=== PATIENT | female | born 2000 | race Caucasian/White ===

== ENCOUNTER 2020-11-08 11:16 | Emergency (ER) | payer OTHER, MEDICAID, SELFPAY ==
[2020-11-08 11:25] VITALS: BP 141/60; PULSE 98; RESP 18; TEMP 36.9; O2SAT 98
--- NOTE | 2020-11-08 11:51 | ED.URI ---
HPI - URI/Sore Throat General Chief Complaint: Upper Respiratory Infection Stated Complaint: ear pain congestion and headache Time Seen by Provider: 11/08/20 11:51 Source: patient and family History of Present Illness HPI Narrative: Patient presents with bilateral ear pain nasal congestion cough fever and fatigue. Patient works at [employer] and states her symptoms started yesterday. Patient is not immunized for COVID-19 MD elicited complaint: fever and nasal congestion Related Data Home Medications Medication Instructions Recorded Confirmed No Home Medications 11/08/20 11/08/20 Allergies Allergy/AdvReac Type Severity Reaction Status Date / Time Bumble Bee Allergy Intermediate Dyspnea / Uncoded 11/08/20 11:32 SOB Review of Systems Review of Systems: CONSTITUTIONAL: Denies chills, or sweats. Reports fever and generalized body aches EYES: Denies visual changes, redness, or discharge. ENT: Denies otalgia. Reports nasal congestion runny nose and sore throat CARDIOVASCULAR: Denies chest pain, palpitations, or edema. RESPIRATORY: Denies dyspnea. Reports occasional cough GASTROINTESTINAL: Denies abdominal pain, nausea, vomiting, or diarrhea. GENITOURINARY: Denies dysuria or hematuria. SKIN: Denies rash or itching. MUSCULOSKELETAL: Denies back pain, joint pain, or myalgia. Reports generalized body aches NEUROLOGIC: Denies headache, numbness, or weakness. PSYCHIATRIC: Denies anxiety or depression. [facility] Past Medical History Medical History (Updated 11/08/20 @ 12:08 by AASHISH Carlisle) Anxiety Depression Fracture Left forearm Surgical History Surgical History (Updated 03/13/19 @ 18:01 by AASHISH Milner) History of adenoidectomy Hx of tonsillectomy Social History Social History (Updated 03/13/19 @ 18:06 by AASHISH Milner) Social History: Marijuana use Comments At time of signature, agree with nursing past medical, surgical, social and family history. There is no relevant family history pertinent to the presenting complaint Exam Narrative: The patient is a well-developed, well-nourished in no acute distress. SKIN: Skin is warm and dry without erythema, swelling or exudate. There is good turgor. No tenting. HEAD: Atraumatic. Normocephalic. No temporal or scalp tenderness. EYES: Moist and bright. Sclera and conjunctivae normal. No discharge. PERRLA. Extraocular motions intact. Gross visual acuity intact. EARS: Pinna is normal shape and contour. Clear external auditory canals. TM pearly robbins with good cone of light, no erythema or suppuration. Bilateral cerumen noted no gross hearing deficit. NOSE: pink, moist mucosa with good air movement. Clear rhinorrhea without nasal flaring. Septum midline. Mouth: moist mucous membranes. THROAT; mild erythema noted to posterior oropharynx with moderate postnasal drainage. Without exudate or ulceration.. Uvula midline. Normal movement of soft palate. NECK: Supple and nontender with full range of motion without discomfort. No meningeal signs. LUNGS: Equal and bilateral breath sounds without wheezes, rales or rhonchi. CHEST: The chest wall is without retractions or use of accessory muscles. HEART: Has a regular rate and rhythm without murmur, gallops, click or rub. ABDOMEN: Soft, nontender with positive active bowel sounds. No rebound tenderness. EXTREMITIES: Without cyanosis, clubbing or edema. Equal 2+ distal pulses and 2 second capillary refill noted. NEUROLOGIC: alert, active, . The patient moves all extremities with normal muscle strength. Normal muscle tone is noted. Normal coordination is noted. NO focal neurological findings noted. MDM - URI/Sore Throat Differential Diagnosis Differential diagnosis: Likely upper respiratory infection, croup, otitis media, sinusitis, viral infection, bronchitis, influenza and pharyngitis Medical Records Attestation: I reviewed the patient's medical records. Lab Data Attestation: I reviewed the patient's lab
== END 2020-11-08 12:10 | disposition home or self-care (01) ==
PROVIDERS: Emergency Provider Nurse Practitioner Family
DX: U07.1 COVID-19 (principal)
CPT/HCPCS: 87426; 99213; C9803; G0463

== ENCOUNTER 2021-08-08 14:12 | Emergency (ER) | payer OTHER, MEDICAID, SELFPAY ==
--- NOTE | ~2021-08-08 | XR_ITS ---
EXAM: XR shoulder LT min 2V HISTORY: STRAINED ARM LIFTING A 15LB. ITEM 08/07/21. LROM. COMPARISON: None available FINDINGS: Normal mineralization. Oblique oriented linear lucency and cortical step-off seen in one v iew in the mid shaft left clavicle, otherwise no fracture or dislocation. No lytic or blastic lesion. Joint spaces maintained. No erosion or periosteal change. Soft tissues within normal limits. IMPRESSION: Lucency and cortical irregularity in the mid left clavicular shaft, likely representing a vascular ch ute and summation artifact, unless accompanied by point tenderness. Otherwise no acute osseous find ing in the left shoulder. Reviewed, dictated and finalized at location K. IMPRESSION: Lucency and cortical irregularity in the mid left clavicular shaft, likely repr esenting a vascular channel and summation artifact, unless accompanied by point tenderness. Otherwise no acute osseous finding in the left shoulder.
[2021-08-08 14:18] VITALS: BP 116/69; PULSE 82; RESP 20; TEMP 37; O2SAT 99
--- NOTE | 2021-08-08 15:12 | ED.GENADULT ---
HPI - General Adult General Chief complaint: Extremity Injury, Upper Stated complaint: left shoulder/back injury Source: patient Mode of arrival: ambulatory Limitations: no limitations History of Present Illness HPI narrative: Patient presents for evaluation of left shoulder/scapula pain since yesterday. She works at [employer] she dropped a tea urn yesterday while working. Since that time she has noted pain in the affected area. Pain is rated 4/10 in severity, without descriptive quality and worse with movement. She tried taking ibuprofen and tylenol with some improvement in her pain thereafter. No radicular component. No paresthesias. She is right-hand dominant. No additional complaints or concerns. Patient has an IUD. Related Data Allergies Allergy/AdvReac Type Severity Reaction Status Date / Time Bumble Bee Allergy Intermediate Dyspnea / Uncoded 08/08/21 14:19 SOB Review of Systems Review of Systems: CONSTITUTIONAL: Denies fever, chills, or sweats. EYES: Denies visual changes, redness, or discharge. ENT: Denies rhinorrhea, congestion, sore throat, or otalgia. CARDIOVASCULAR: Denies chest pain, palpitations, or edema. RESPIRATORY: Denies cough or dyspnea. GASTROINTESTINAL: Denies abdominal pain, nausea, vomiting, or diarrhea. GENITOURINARY: Denies dysuria or hematuria. SKIN: Denies rash or itching. MUSCULOSKELETAL: Reports pain left scapula/shoulder. Denies other joint pain NEUROLOGIC: Denies headache, numbness, dizziness, or weakness. PSYCHIATRIC: Denies anxiety or depression. [facility] Past Medical History Medical History Anxiety Depression Fracture Left forearm Surgical History Surgical History History of adenoidectomy Hx of tonsillectomy Family History Family History Mother Heart disease COPD (chronic obstructive pulmonary disease) Social History Social History Social History: Marijuana use Smoking status: Never smoker Alcohol intake: never Substance use: current Substance use type: marijuana Living arrangements: with family Occupation/Education: occupation Additional occupation/education comments: Works at [employer] Gender identity (if verbalized by the patient): Female Spiritual care concerns: No Exam Narrative: GENERAL: Well-appearing, well-nourished, and in no acute distress. HEAD: Normocephalic, atraumatic. EYES: PERRLA and EOMI. ENT: Nares clear, no rhinorrhea or epistaxis. Mucous membranes moist. Oropharynx without tonsillar hypertrophy exudate or other lesions. Bilateral TMs pearly tovar nonbulging NECK: Supple. No adenopathy or masses. No carotid bruits or JVD CHEST: Clear to auscultation. No respiratory distress. No wheezes rales or rhonchi HEART: Regular rate and rhythm. No murmur heard. Normal peripheral pulses. ABDOMEN: Soft, nontender, nondistended, normal active bowel sounds. EXTREMITIES: Tenderness over the left scapula without discrete left shoulder tenderness. There is no crepitus or deformity. She is able to perform full range of motion of the left shoulder but does so with hesitancy secondary to pain. 5 out of 5 handgrip strength bilaterally. No tenderness in the clavicle. SKIN: Warm, dry, no rash. NEURO: No focal deficits. Alert and oriented x3. PSYCH: Normal mood and affect. Course Course Emergency Course: This is a 21-year-old female who presented with pain in the left scapula and shoulder after dropping a tea urn yesterday. X ray negative for fracture. She has no tenderness in clavicle to suggest clavicle fracture. This appears to be a muscle strain. Will discharge with a prescription for Flexeril. She may take ibuprofen for pain. She should follow up outpatient for further evaluatio
== END 2021-08-08 16:15 | disposition home or self-care (01) ==
PROVIDERS: Emergency Provider Nurse Practitioner
DX: S46.912A Strain of unspecified muscle, fascia and tendon at shoulder and upper arm level, left arm, initial encounter (principal); X58.XXXA Exposure to other specified factors, initial encounter
CPT/HCPCS: 73030; 99213; G0463

== ENCOUNTER 2022-03-02 17:00 | Emergency (ER) | payer OTHER, MEDICAID, SELFPAY ==
[2022-03-02 17:40] VITALS: BP 138/71; PULSE 95; RESP 20; TEMP 37.1; O2SAT 100
--- NOTE | 2022-03-02 18:38 | ED.URI ---
HPI - URI/Sore Throat General Chief Complaint: Upper Respiratory Infection Stated Complaint: Sore Throat/Headache Time Seen by Provider: 03/02/22 18:35 Source: patient and RN notes reviewed Mode of arrival: ambulatory Limitations: no limitations History of Present Illness HPI Narrative: 21-year-old female presents with concern for 4 day history of body aches, cough, headache, ear pain, sore throat. Reports cough seemed to worsen today with chest heaviness. She reports chills, sweats, aches MD elicited complaint: cough Related Data Home Medications Medication Instructions Recorded Confirmed levonorgestrel 20 mcg/24 hours (8 1 device intrauterine ONCE 03/02/22 03/02/22 yrs) 52 mg intrauterine device (Mirena) Allergies Allergy/AdvReac Type Severity Reaction Status Date / Time bee pollen Allergy Unknown Unknown Verified 03/02/22 18:01 Review of Systems Review of Systems: CONSTITUTIONAL: Reports malaise, chills, sweats EYES: Denies visual changes, redness, or discharge. ENT: Reports rhinorrhea, congestion, sore throat. Denies sinus pain, otalgia CARDIOVASCULAR: Denies chest pain, palpitations, or edema. RESPIRATORY: Reports cough. Denies dyspnea. GASTROINTESTINAL: Denies abdominal pain, nausea, vomiting, diarrhea SKIN: Denies rash or itching. MUSCULOSKELETAL: Reports myalgia. NEUROLOGIC: Denies headache. All systems reviewed & are unremarkable except as noted in HPI and below PMFSH Past Medical History Medical History Anxiety Depression Fracture Left forearm Surgical History Surgical History History of adenoidectomy Hx of tonsillectomy Family History Family History Mother Heart disease COPD (chronic obstructive pulmonary disease) Social History Social History Social History: Marijuana use Smoking status: Never smoker Alcohol intake: never Substance use: current Substance use type: marijuana Additional occupation/education comments: Works at [employer] Gender identity (if verbalized by the patient): Female Spiritual care concerns: No Comments At time of signature, agree with nursing past medical, surgical, social and family history. There is no relevant family history pertinent to the presenting complaint Exam Narrative: GENERAL: Nontoxic-appearing and in no acute distress. HEAD: Normocephalic EYES: PERRLA, conjunctivae clear ENT: Nares clear, turbinates edematous and erythematous, clear discharge. Mucous membranes moist. TM pearly tovar with sharp light reflex bilaterally; no tragal tenderness. Oropharynx not erythematous without lesions. Tonsils not enlarged and without exudate, no drooling, no hoarseness, no trismus, uvula midline. NECK: Supple. No lymphadenopathy CHEST: Clear to auscultation, breath sounds equal. No wheezing, rhonchi, rales, or stridor. No respiratory distress, speaks in full sentences. HEART: Regular rate and rhythm. No murmur heard. SKIN: Warm, dry, no rash. NEURO: Alert and oriented x3. PSYCH: Normal mood and affect Course Course Emergency Course: Patient is aware of diagnosis, understands and agrees to treatment plan. Anticipatory guidance given. Patient agrees to follow-up as directed and is aware of reasons to seek care at the emergency department. Portions of this record may have been created with voice recognition software Level of Care: Express Care Visit Vital Signs Vital signs: Vital Signs Temperature 98.7 F 03/02/22 17:40 Pulse Rate 95 03/02/22 17:40 Respiratory Rate 20 03/02/22 17:40 Blood Pressure 138/71 03/02/22 17:40 Pulse Oximetry 100 03/02/22 17:40 Oxygen Delivery Room Air 03/02/22 17:40 Temperature 98.7 F 03/02/22 17:40 Pulse Rate 95 03/02/22 17:40 Resp
== END 2022-03-02 18:50 | disposition home or self-care (01) ==
PROVIDERS: Emergency Provider Nurse Practitioner
DX: J02.9 Acute pharyngitis, unspecified (principal); R05.9 Cough, unspecified; R51.9 Headache, unspecified; H92.09 Otalgia, unspecified ear
CPT/HCPCS: 87804; 99213; G0463

== ENCOUNTER 2022-09-18 12:52 | Emergency (ER) | payer OTHER, MEDICAID, SELFPAY ==
--- NOTE | 2022-09-18 13:02 | ED.HA ---
HPI - Headache General Chief Complaint: Headache Stated Complaint: head hurts Time Seen by Provider: 09/18/22 13:02 Source: patient and RN notes reviewed History of Present Illness HPI Narrative: Patient is a 22-year-old female who presents to urgent care with complaints of a headache. Patient states that it was worse this morning and does feel slightly better this afternoon however she ?called off work and needs a work note?. Patient states that yesterday it started after giving plasma when she became lightheaded and did have 1 episode of vomiting. Patient states that she was giving plasma for ?extra money to pay her insurance pill?. Patient states that she has never given blood products before. Patient states she did try 1 dose of Tylenol yesterday but has not treated her headache today. Patient aware of the plan of care. Some parts of this dictation were generated by voice recognition software and may contain typographical and/or grammatical inaccuracies. Related Data Home Medications Medication Instructions Recorded Confirmed levonorgestrel 21 mcg/24 hours (8 1 device intrauterine ONCE 03/02/22 03/02/22 yrs) 52 mg intrauterine device (Mirena) Allergies Allergy/AdvReac Type Severity Reaction Status Date / Time bee pollen Allergy Unknown Unknown Verified 03/02/22 18:01 Review of Systems Review of Systems: CONSTITUTIONAL: Denies fever, chills, or sweats. EYES: Denies visual changes, redness, or discharge. ENT: Denies rhinorrhea, congestion, sore throat, or otalgia. CARDIOVASCULAR: Denies chest pain, palpitations, or edema. RESPIRATORY: Denies cough or dyspnea. GASTROINTESTINAL: Denies abdominal pain, nausea, vomiting, or diarrhea. GENITOURINARY: Denies dysuria or hematuria. SKIN: Denies rash or itching. MUSCULOSKELETAL: Denies back pain, joint pain, or myalgia. NEUROLOGIC: Reports headache All other systems reviewed are negative, except as documented in HPI. [facility] Past Medical History Medical History Anxiety Depression Fracture Left forearm Surgical History Surgical History History of adenoidectomy Hx of tonsillectomy Family History Family History Mother Heart disease COPD (chronic obstructive pulmonary disease) Social History Social History Social History: Marijuana use Smoking status: Never smoker Alcohol intake: never Substance use: current Substance use type: marijuana Living arrangements: with family Occupation/Education: occupation Additional occupation/education comments: Works at [employer] Gender identity (if verbalized by the patient): Female Spiritual care concerns: No Comments At the time of my signature, I reviewed and agree with the nursing past medical, surgical, social, and family history. There is no relevant family history pertinent to the patient complaint. Exam Narrative: GENERAL: This is a well-nourished, well-developed patient, in no apparent distress. HEAD: normocephalic, atraumatic. EYES: PERRL. Sclera clear/white. Vision is grossly intact. EARS: External ears normal NOSE: External nose normal with no obvious nasal discharge, nares without redness, no rhinorrhea. THROAT: Mucous membranes moist NECK: Neck supple SKIN: warm, intact with no suspicious lesions or rash, good texture and turgor. NEURO: awake, alert, and oriented to person, place and time. There were no obvious focal neurologic abnormalities. EXTREMITIES: No clubbing, cyanosis, or edema. Course Course Level of Care: Express Care Visit Vital Signs Vital signs: Vital Signs Temperature 97.1 F L 09/18/22 13:03 Pulse Rate 91 09/18/22 13:03 Respiratory Rate 16 09/18/22 13:03 Blood Pressure 124/72 09/18/22 13:03 Puls
[2022-09-18 13:03] VITALS: BP 124/72; PULSE 91; RESP 16; TEMP 36.2; O2SAT 98
== END 2022-09-18 13:13 | disposition home or self-care (01) ==
PROVIDERS: Emergency Provider Nurse Practitioner Family
DX: G44.209 Tension-type headache, unspecified, not intractable (principal)
CPT/HCPCS: 99211; G0463

== ENCOUNTER 2022-09-19 12:32 | Emergency (ER) | payer OTHER, MEDICAID, SELFPAY ==
--- NOTE | ~2022-09-19 | XR_ITS ---
XR hand LT min 3V DATE: 09/19/2022 12:55 INDICATION: Injury. Hyperextension injury of fifth digit. TECHNIQUE: 3 views COMPARISON: None FINDINGS: No fracture or dislocation, periosteal reaction or bone destruction or other significant [place] or soft tissue abnormality. IMPRESSION: Negative Reviewed, dictated and finalized at location A. IMPRESSION: Negative
[2022-09-19 12:42] VITALS: BP 137/64; PULSE 89; RESP 16; TEMP 37; O2SAT 99
--- NOTE | 2022-09-19 12:49 | ED.UPPEXIN ---
HPI - Extremity Injury (Upper) General Chief Complaint: Extremity Injury, Upper Stated Complaint: left hand injury Time Seen by Provider: 09/19/22 12:49 Source: patient and RN notes reviewed History of Present Illness HPI narrative: Patient is a 22-year-old female presents to urgent care with complaints of left hand injury after tripping over her cat yesterday. Patient is complaining of most of the pain in the 5th left finger. Patient states that she took Tylenol yesterday. Patient was also evaluated at our facility yesterday for headache and was requesting a work note. No other acute complaints. No acute distress noted. Patient aware of the plan of care. Some parts of this dictation were generated by voice recognition software and may contain typographical and/or grammatical inaccuracies. Related Data Home Medications Medication Instructions Recorded Confirmed levonorgestrel 21 mcg/24 hours (8 1 device intrauterine ONCE 03/02/22 03/02/22 yrs) 52 mg intrauterine device (Mirena) Allergies Allergy/AdvReac Type Severity Reaction Status Date / Time bee pollen Allergy Unknown Unknown Verified 03/02/22 18:01 Review of Systems Review of Systems: CONSTITUTIONAL: Denies fever, chills, or sweats. EYES: Denies visual changes, redness, or discharge. ENT: Denies rhinorrhea, congestion, sore throat, or otalgia. CARDIOVASCULAR: Denies chest pain, palpitations, or edema. RESPIRATORY: Denies cough or dyspnea. GASTROINTESTINAL: Denies abdominal pain, nausea, vomiting, or diarrhea. GENITOURINARY: Denies dysuria or hematuria. SKIN: Denies rash or itching. MUSCULOSKELETAL: Reports of left 5th finger pain NEUROLOGIC: Denies headache, numbness, or weakness. All other systems reviewed are negative, except as documented in HPI. [facility] Past Medical History Medical History Anxiety Depression Fracture Left forearm Surgical History Surgical History History of adenoidectomy Hx of tonsillectomy Family History Family History Mother Heart disease COPD (chronic obstructive pulmonary disease) Social History Social History Social History: Marijuana use Smoking status: Never smoker Alcohol intake: never Substance use: current Substance use type: marijuana Living arrangements: with family Occupation/Education: occupation Additional occupation/education comments: Works at [employer] Gender identity (if verbalized by the patient): Female Spiritual care concerns: No Comments At the time of my signature, I reviewed and agree with the nursing past medical, surgical, social, and family history. There is no relevant family history pertinent to the patient complaint. Exam Narrative: GENERAL: This is a well-nourished, well-developed patient, in no apparent distress. HEAD: normocephalic, atraumatic. EYES: PERRL. Sclera clear/white. Vision is grossly intact. EARS: External ears normal NOSE: External nose normal with no obvious nasal discharge, nares without redness, no rhinorrhea. THROAT: Mucous membranes moist NECK: Neck supple SKIN: warm, intact with no suspicious lesions or rash, good texture and turgor. NEURO: awake, alert, and oriented to person, place and time. There were no obvious focal neurologic abnormalities. EXTREMITIES: No obvious deformity, ecchymosis or edema noted to the left hand/5th finger. Moderate tenderness on palpation. Range of motion limited due to pain. Positive strong left radial pulse with capillary refill less than 2 seconds. Course Course Level of Care: Express Care Visit Vital Signs Vital signs: Vital Signs Temperature 98.6 F 09/19/22 12:42 Pulse Rate 89 09/19/22 12:42 Respiratory Rate 16 09/19/22 12:42 Blood Pres
== END 2022-09-19 13:24 | disposition home or self-care (01) ==
PROVIDERS: Emergency Provider Nurse Practitioner Family
DX: S63.617A Unspecified sprain of left little finger, initial encounter (principal); W01.0XXA Fall on same level from slipping, tripping and stumbling without subsequent striking against object, initial encounter
CPT/HCPCS: 73130; 99213; G0463

== ENCOUNTER 2023-03-19 14:58 | Emergency (ER) | payer OTHER, MEDICAID, SELFPAY ==
[2023-03-19 15:06] VITALS: BP 124/77; PULSE 95; RESP 20; TEMP 36.7; O2SAT 96
--- NOTE | 2023-03-19 15:19 | ED.URI ---
HPI - URI/Sore Throat General Chief Complaint: Upper Respiratory Infection Stated Complaint: Ear Ache; Cold Symptoms History of Present Illness HPI Narrative: 22-year-old female presented for complaint of sore throat , nasal congestion, and Bilateral ear pain. Onset yesterday. 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 She has not taken anything for symptoms. Denies shortness breath, wheezing, nausea, vomiting, fevers or chills. Related Data Home Medications Medication Instructions Recorded Confirmed levonorgestrel 21 mcg/24 hours (8 1 device intrauterine ONCE 03/02/22 03/02/22 yrs) 52 mg intrauterine device (Mirena) Allergies Allergy/AdvReac Type Severity Reaction Status Date / Time bee pollen Allergy Unknown Unknown Verified 03/02/22 18:01 Review of Systems Review of Systems: CONSTITUTIONAL: Denies body aches, fever, chills, or sweats. EYES: Denies visual changes, redness, or discharge. ENT: reports congestion, sore throat, otalgia. CARDIOVASCULAR: Denies chest pain, palpitations, or edema. RESPIRATORY: Denies dyspnea. GASTROINTESTINAL: Denies abdominal pain, nausea, vomiting, or diarrhea. SKIN: Denies rash, itching, or wounds. MUSCULOSKELETAL: Denies back pain, joint pain, or myalgia. NEUROLOGIC: Denies headache PMFSH Past Medical History Medical History Anxiety Depression Fracture Left forearm Surgical History Surgical History History of adenoidectomy Hx of tonsillectomy Family History Family History Mother Heart disease COPD (chronic obstructive pulmonary disease) Social History Social History Social History: Marijuana use Smoking status: Never smoker Alcohol intake: never Substance use: current Substance use type: marijuana Living arrangements: with family Occupation/Education: occupation Additional occupation/education comments: Works at [employer] Gender identity (if verbalized by the patient): Female Spiritual care concerns: No Exam Narrative: GENERAL: well-appearing, no acute distress. EYES: conjunctivae clear ENT: Mucous membranes moist. TMs pearly tovar with normal light reflex bilaterally; no tragal tenderness. Excess cerumen bilateral canals. Oropharynx not erythematous without lesions. Tonsils absent. No drooling, no hoarseness, no trismus, uvula midline. No tripod positioning, hot potato voice, or soft palate swelling. NECK: Supple. No lymphadenopathy CHEST: Clear to auscultation, breath sounds equal. No respiratory distress, speaks in full sentences. HEART: Regular rate and rhythm. No murmur heard. SKIN: Warm, dry, no rash. NEURO: Alert and oriented x3. Course Course Emergency Course: Patient is aware of diagnosis, understands and agrees to treatment plan. Anticipatory guidance given. Patient agrees to follow-up as directed and is aware of reasons to seek care at the emergency department. Portions of this record may have been created with voice recognition software Level of Care: Express Care Visit MDM - URI/Sore Throat MDM Narrative Medical decision making narrative: negative strep test results reviewed with patient. Discussed physical exam findings. Advised supportive measures and signs/symptoms to go to the ER. Pt is appropriate for outpt treatment and f/u. Differential Diagnosis Differential diagnosis: Likely upper respiratory infection, otitis media, sinusitis, viral infection and pharyngitis Discharge Plan Discharge Clinical Impression: Upper respiratory infection Patient Disposition: Home, Self-Care Condition: Stable Instructions: Antibiotic Form, Earache (ED) Additional Instructions: Rapid strep swab was nega
== END 2023-03-19 15:33 | disposition home or self-care (01) ==
PROVIDERS: Emergency Provider Nurse Practitioner Family
DX: J06.9 Acute upper respiratory infection, unspecified (principal); F12.90 Cannabis use, unspecified, uncomplicated
CPT/HCPCS: 87081; 87880; 99213; G0463

== ENCOUNTER 2023-06-24 15:33 | Emergency (ER) | payer OTHER, MEDICAID, SELFPAY ==
[2023-06-24 15:43] VITALS: BP 144/79; PULSE 82; RESP 16; TEMP 37.1; O2SAT 99
--- NOTE | 2023-06-24 16:03 | ED.GENADULT ---
HPI - General Adult General Stated complaint: Head Injury Time Seen by Provider: 06/24/23 16:04 Source: patient Mode of arrival: ambulatory Limitations: no limitations History of Present Illness HPI narrative: 22 yo F presents with c/o headache. Pt states that she was bent down at work and when she stood up hit her head on oven on wall. Denies LOC. C/o headache. Took tylenol which helped pain some . No N/V or dizziness. Ambulatory with steady gait. Pt left work early due to headache. Needs work note. Drove herself to [facility]. All systems reviewed and negative except as noted above. Related Data Home Medications Medication Instructions Recorded Confirmed levonorgestrel 21 mcg/24 hours (8 1 device intrauterine ONCE 03/02/22 06/24/23 yrs) 52 mg intrauterine device (Mirena) Allergies Allergy/AdvReac Type Severity Reaction Status Date / Time bee pollen Allergy Unknown Unknown Verified 06/24/23 16:07 Review of Systems Review of Systems: CONSTITUTIONAL: Denies fever, chills, or sweats. EYES: Denies visual changes, redness, or discharge. ENT: Denies rhinorrhea, congestion, sore throat, or otalgia. CARDIOVASCULAR: Denies chest pain, palpitations, or edema. RESPIRATORY: Denies cough or dyspnea. GASTROINTESTINAL: Denies abdominal pain, nausea, vomiting, or diarrhea. GENITOURINARY: Denies dysuria or hematuria. SKIN: Denies rash or itching. MUSCULOSKELETAL: Denies back pain, joint pain, or myalgia. NEUROLOGIC: Reports headache. Denies numbness, or weakness. PSYCHIATRIC: Denies anxiety or depression. All other systems reviewed are negative, except as documented in HPI. COUNTS INCLUDE 234 BEDS AT THE [facility] Past Medical History Medical History Anxiety Depression Fracture Left forearm Surgical History Surgical History History of adenoidectomy Hx of tonsillectomy Family History Family History Mother Heart disease COPD (chronic obstructive pulmonary disease) Social History Social History Social History: Marijuana use Smoking status: Never smoker Alcohol intake: never Substance use: current Substance use type: marijuana Living arrangements: with family Occupation/Education: occupation Additional occupation/education comments: Works at [employer] Gender identity (if verbalized by the patient): Female Spiritual care concerns: No Comments At time of signature, agree with nursing past medical, surgical, social and family history. There is no relevant family history pertinent to the presenting complaint. Exam Narrative: GENERAL: This is a well-nourished, well-developed patient, in no apparent distress. HEAD: normocephalic, small hematoma approx. 2cm diameter to R parietal aspect of scalp EYES: PERRL. Sclera clear/white. Vision is grossly intact. Extraocular motions intact EARS: External ears normal NOSE: External nose normal THROAT: Mucous membranes moist, posterior pharynx clear. NECK: Neck supple, non-tender without lymphadenopathy, masses or thyromegaly. CARDIOVASCULAR: Regular rate and rhythm without murmurs, gallops, or rubs. RESPIRATORY: Clear to auscultation. Breath sounds equal bilaterally. No wheezes, rales, or rhonchi. SKIN: warm, Dry, intact with no suspicious lesions or rash, good texture and turgor. NEURO: awake, alert, and oriented to person, place and time. There were no obvious focal neurologic abnormalities. EXTREMITIES: No joint tenderness, effusion, or edema noted. Course Course Level of Care: Express Care Visit Vital Signs Vital signs: Vital Signs Temperature 37.1 C 06/24/23 15:43 Pulse Rate 82 06/24/23 15:43 Respiratory Rate 16 06/24/23 15:43 Blood Pressure 144/79 H 06/24/23 15:43 Pulse Oximetry 99 06/24/23 15:43 Oxygen Delivery Room Air
== END 2023-06-24 16:10 | disposition home or self-care (01) ==
PROVIDERS: Emergency Provider Nurse Practitioner Family
DX: S00.03XA Contusion of scalp, initial encounter (principal); W22.09XA Striking against other stationary object, initial encounter; Y99.0 Civilian activity done for income or pay; F12.90 Cannabis use, unspecified, uncomplicated
CPT/HCPCS: 99213; G0463

== ENCOUNTER 2023-12-24 08:07 | Emergency (ER) | payer OTHER, MEDICAID, SELFPAY ==
[2023-12-24 08:18] VITALS: BP 136/86; PULSE 84; RESP 18; TEMP 36.6; O2SAT 99
--- NOTE | 2023-12-24 08:27 | ED.GENADULT ---
HPI - General Adult General Chief complaint: Upper Respiratory Infection Stated complaint: Sore Throat/Ear Pain Source: patient Mode of arrival: ambulatory Limitations: no limitations History of Present Illness HPI narrative: Patient presents for evaluation of sore throat for last 2 days. She also has bilateral otalgia and a mild cough. No fever, chills, nausea, vomiting, diarrhea. Some of her coworkers have been ill with at least one testing positive for strep. She is not taking any medications to assist with her symptoms. She smokes marijuana but denies cigarette use. She left work early today due to her symptoms. Related Data Home Medications Medication Instructions Recorded Confirmed levonorgestrel 21 mcg/24 hr (up to 1 device intrauterine ONCE 03/02/22 06/24/23 8 years) 52 mg intrauterine device (Mirena) Allergies Allergy/AdvReac Type Severity Reaction Status Date / Time bee pollen Allergy Unknown Unknown Verified 06/24/23 16:07 Review of Systems Review of Systems: CONSTITUTIONAL: Denies fever, chills, or sweats. EYES: Denies visual changes, redness, or discharge. ENT: Reports sore throat and bilateral otalgia. CARDIOVASCULAR: Denies chest pain, palpitations, or edema. RESPIRATORY: Reports mild cough. Denies dyspnea. GASTROINTESTINAL: Denies abdominal pain, nausea, vomiting, or diarrhea. GENITOURINARY: Denies dysuria or hematuria. SKIN: Denies rash or itching. MUSCULOSKELETAL: Denies back pain, joint pain, or myalgia. NEUROLOGIC: Denies headache, numbness, dizziness, or weakness. PSYCHIATRIC: Denies anxiety or depression. [facility] Past Medical History Medical History Anxiety Depression Fracture Left forearm Surgical History Surgical History History of adenoidectomy Hx of tonsillectomy Family History Family History Mother Heart disease COPD (chronic obstructive pulmonary disease) Social History Social History Social History: Marijuana use Smoking status: Never smoker Alcohol intake: never Substance use: current Substance use type: marijuana Living arrangements: with family Occupation/Education: occupation Additional occupation/education comments: Works at [employer] Gender identity (if verbalized by the patient): Female Spiritual care concerns: No Exam Narrative: GENERAL: Well-appearing, well-nourished, and in no acute distress. HEAD: Normocephalic, atraumatic. EYES: PERRLA and EOMI. ENT: Nares clear, no rhinorrhea or epistaxis. Mucous membranes moist. Posterior pharyngeal erythema without exudate. Uvula is midline. Bilateral TMs pearly tovar nonbulging NECK: Supple. No adenopathy or masses. No carotid bruits or JVD CHEST: Clear to auscultation. No respiratory distress. No wheezes rales or rhonchi HEART: Regular rate and rhythm. No murmur heard. Normal peripheral pulses. ABDOMEN: Soft, nontender, nondistended, normal active bowel sounds. EXTREMITIES: Normal range of motion. No edema. SKIN: Warm, dry, no rash. NEURO: No focal deficits. Alert and oriented x3. PSYCH: Normal mood and affect. Course Course Emergency Course: This is a 23-year-old female who presented for evaluation of a sore throat. Rapid strep negative. Will send throat culture. Advised on supportive care measures. Cepacol and ibuprofen should help. Follow up with primary provider. Go to the ER for worsening symptoms. Pt in agreement with plan of care. Level of Care: Express Care Visit Vital Signs Vital signs: Vital Signs Temperature 36.6 C 12/24/23 08:18 Pulse Rate 84 12/24/23 08:18 Respiratory Rate 18 12/24/23 08:18 Blood Pressure 136/86 12/24/23 08:18 Pulse Oximetry 99 12/24/23 08:18 Oxygen Delivery Room Air
[2023-12-24 08:35] LABS: EDSTREPNEGPOS1 Negative (Negative)
== END 2023-12-24 08:41 | disposition home or self-care (01) ==
PROVIDERS: Emergency Provider Nurse Practitioner
DX: J02.9 Acute pharyngitis, unspecified (principal); F12.90 Cannabis use, unspecified, uncomplicated
CPT/HCPCS: 87081; 87880; 99213; G0463

== ENCOUNTER 2024-03-09 16:43 | Emergency (ER) | payer OTHER, SELFPAY ==
[2024-03-09 16:47] VITALS: BP 119/65; PULSE 106; RESP 20; TEMP 36.6; O2SAT 99
[2024-03-09 16:51] VITALS: BP 119/65; PULSE 106; RESP 20; TEMP 36.6; O2SAT 99
--- NOTE | 2024-03-09 17:26 | ED_ITS ---
HPI - URI/Sore Throat General Chief Complaint: Upper Respiratory Infection Stated Complaint: throat/congestion/headache Time Seen by Provider: 03/09/24 17:30 Source: patient and RN notes reviewed Mode of arrival: ambulatory Limitations: no limitations History of Present Illness HPI Narrative: 23-year-old female presents with concern for 4 day history of nasal congestion, rhinorrhea, cough, sore throat, headache. She reports she is taking cold medicine without relief. She denies fever, body aches, chills, sweats MD elicited complaint: rhinorrhea and nasal congestion Related Data Home Medications Medication Instructions Recorded Confirmed etonogestrel 68 mg subdermal 1 implant subdermal ONCE 03/09/24 03/09/24 implant (Nexplanon) Allergies Allergy/AdvReac Type Severity Reaction Status Date / Time bee pollen Allergy Unknown Swelling Verified 03/09/24 16:50 metoclopramide [From Reglan] Allergy Anxiety Verified 03/09/24 16:50 Review of Systems Review of Systems: CONSTITUTIONAL: Denies malaise, chills, sweats, or fever. EYES: Denies visual changes, redness, or discharge. ENT: Reports rhinorrhea, congestion, and sore throat. CARDIOVASCULAR: Denies chest pain, palpitations, or edema. RESPIRATORY: Reports cough. Denies dyspnea. GASTROINTESTINAL: Denies abdominal pain, nausea, vomiting, diarrhea SKIN: Denies rash or itching. MUSCULOSKELETAL: Denies myalgia. NEUROLOGIC: Denies headache. All systems reviewed & are unremarkable except as noted in HPI and below PMFSH Past Medical History Medical History Anxiety Depression Fracture Left forearm Surgical History Surgical History History of adenoidectomy Hx of tonsillectomy Family History Family History Mother Heart disease COPD (chronic obstructive pulmonary disease) Social History Social History Social History: Marijuana use Smoking status: Never smoker Alcohol intake: never Substance use: current Substance use type: marijuana Living arrangements: with family Occupation/Education: occupation Additional occupation/education comments: Works at [employer] Gender identity (if verbalized by the patient): Female Spiritual care concerns: No Comments At time of signature, agree with nursing past medical, surgical, social and family history. There is no relevant family history pertinent to the presenting complaint Exam Narrative: GENERAL: Well-appearing, well-nourished, and in no acute distress. HEAD: Normocephalic EYES: PERRLA, conjunctivae clear ENT: Nares clear, turbinates edematous and erythematous, clear discharge. Mucous membranes moist. TM pearly tovar with dull light reflex bilaterally; no tragal tenderness. Oropharynx not erythematous without lesions. Tonsils not enlarged and without exudate, no drooling, no hoarseness, no trismus, uvula midline. NECK: Supple. No lymphadenopathy CHEST: Clear to auscultation, breath sounds equal. No wheezing, rhonchi, rales, or stridor. No respiratory distress, speaks in full sentences. HEART: Regular rate and rhythm. No murmur heard. SKIN: Warm, dry, no rash. NEURO: Alert and oriented x3. PSYCH: Normal mood and affect Course Course Emergency Course: Patient is aware of diagnosis, understands and agrees to treatment plan. Anticipatory guidance given. Patient agrees to follow-up as directed and is aware of reasons to seek care at the emergency department. Portions of this record may have been created with voice recognition software Level of Care: Express Care Visit Vital Signs Vital signs: Vital Signs Temperature 97.9 F 03/09/24 16:47 Pulse Rate 106 H 03/09/24 16:47 Respiratory Rate 20 03/09/24 16:47 Blood Pressure 119/65 03/09/24 16:47 Pulse Oximetry 99 03/09/24 16:47 Oxygen Delivery Room Air 03/09/24 16:47 Temperature 97.9 F 03/09/24 16:51 Pulse Rate 106 H 03/09/24 16:51 Respiratory Rate 20 03/09/24 16:51 Blood Pressure 119/65 03/09/24 16:51 Pulse Oximetry 99 03/09/24 16:51 Oxygen Delivery Room Air 03/09/24 16:51 Reviewed. MDM - URI/Sore Throat MDM Narrative Medical decision making narrative: Differential diagnosis considered: Cota virus, strep pharyngitis, allergic rhinitis, upper respiratory tract infection, sinusitis, rhinosinusitis, nasopharyngitis. viral pharyngitis, otitis media, otitis externa, pneumonia, bronchitis, viral cough syndrome, viral syndrome, and influenza. Exam findings show no acute concerns or changes; patient is non-toxic appearing and is in no distress. Patient is appropriate for outpatient treatment and follow-up. Lab Data Attestation: I reviewed the patient's lab results. Critical Care Time Critical Care Time Critical Care Time: No Discharge Plan Discharge Clinical Impression: Upper respiratory infection Patient Disposition: Home, Self-Care Condition: Stable Instructions: Upper Respiratory Infection (ED) Additional Instructions: Your rapid COVID and flu tests are negative Viral illness may last between 7-21 days; antibiotics do not cure viral illness and are NOT recommended at this time. Recommend antihistamine such as Benadryl at night time and Zyrtec or Lizeth during the day Also, recommend symptomatic treatment includes: rest, fluids, and increase humidity of the air at home. Recommend Acetaminophen as directed on the bottle to reduce fever, pain, headache. Avoid smoking/second-hand smoke. Please schedule a follow-up visit with your personal physician for further evaluation and treatment within 3-5days. Including recheck and discussion of your blood pressure. If your symptoms persist, change or worsen significantly before you can contact your personal physician then please, without delay, go to the emergency department for further evaluation. Prescriptions: New pseudoephedrine HCl [12 Hour Decongestant] 120 mg tablet extended release 120 mg PO Q12H PRN (Reason: nasal congestion) Qty: 20 0RF dextromethorphan-guaifenesin [Mucinex DM] 60-1,200 mg tablet extended release 12 hr 1 tablet PO Q12H Qty: 12 0RF ipratropium bromide 21 mcg (0.03 %) spray,non-aerosol 2 spray NASAL TID PRN (Reason: nasal drainage) Qty: 30 0RF Rx Instructions: administer into each nostril No Action Nexplanon 68 mg Implant 1 implant SUBDERMAL ONCE Rx Instructions: as a single dose Follow-up/Referrals: PHYSICIAN,SKI LIFT ATTENDANT [Primary Care Provider] - Stand Alone Forms: Work/School Release IP Time of Disposition: 17:49
[2024-03-09 17:50] LABS: EDCOVIDSCREEN Negative (Negative); EDINFLUASCREEN Negative (Negative); EDINFLUBSCREEN Negative (Negative)
== END 2024-03-09 17:54 | disposition home or self-care (01) ==
PROVIDERS: Emergency Provider Nurse Practitioner
DX: J06.9 Acute upper respiratory infection, unspecified (principal); Z20.822 Contact with and (suspected) exposure to COVID-19; F12.90 Cannabis use, unspecified, uncomplicated
CPT/HCPCS: 87426; 87804; 99213; G0463

== ENCOUNTER 2024-07-07 16:32 | Emergency (ER) | payer OTHER, SELFPAY ==
--- OUTSIDE RECORDS SUMMARY | 2024-07-07 16:34 | XMS_ITS | Clinical Summary ---
Author Organization [facility] Address [address] [place] [address] Phone Care Team Providers Care Hospital Orderly Name Role Phone Provider, None Primary Care Provider Unavailabl e Allergies Active Allergy Reactions Criticality Noted Date Comments Bee Venom Swelling 05/04/2016 Metoclopramide Anxiety,Hallucinations,Unknown 0 06/24/2023 Medications No known medications Active Problems No known active problems Social History Tobacco Use Types Packs/Day Years Used Date Smoking Tobacco: Never Alcohol Use Standard Drinks/Week Comments No 0 (1 standard drink = 0.6 oz pur e alcohol) Comments No Sex and Gender Information Value Date Recorded Sex Assigned at Not on file Legal Sex Female 10:55 PM CDT Gender Identity Not on file Sexual Orientation Not on file Last Filed Vital Signs Vital Sign Reading Time Taken Comments Blood Pressure 146/85 06/24/2023 7:22 PM CDT Pulse 86 06/24/2023 7:22 PM CDT Temperature 36.6 C (97.8 F) 06/24/2023 5:17 PM CDT Respiratory Rate 18 06/24/2023 7:22 PM CDT Oxygen Saturation 98% 06/24/2023 7:22 PM CDT Inhaled Oxygen Concentration - - Weight 86.2 kg (190 lb) 06/24/2023 5:17 PM CDT Height 152.4 cm (5') 06/24/2023 5:17 PM CDT Body Mass Index 37.11 06/24/2023 5:17 PM CDT Plan of Treatment Health Maintenance Due Date Last Done Comments Hepatitis C Virus (HCV) Screening 2000 Pap Smear 2021 Influenza Immunization (#1) 2023 06/14/2019 SARS-COV-2 Immunization ( season) 2023 Respiratory Syncytial Virus (RSV) Immunization (Adult) (-dose 75+ series) 07/12/2075 Pneumococcal Immunization Combined Aged Out 01/11/2001, 2000, 2000 No longer eligible based on patient's age to complete this topic Hepatitis B Immunization Completed 002, 2000, 2000 Measles Mumps Rubella (MMR) Immunization Discontinued 09/09/2005, 01/24/2002 Polio (IPV) Immunization Discontinued 006, 01/11/2001, 2000, Additional history exists DTaP/Tdap/Td Immunization Discontinued 2011, 09/09/2005, 01/24/2002, Additional history exists TdaP Immunization Completed 12/09/2011 Varicella Immunization Discontinued 07/08/2014, 2001 Hepatitis A Immunization Discontinued 07/07/2017, 09/2014 Human Papillomavirus (HPV) Immunization Completed 07/07/2017, 07/08/2014 Meningococcal Immunization (ACWY) Completed 07/07/2017, 07/08/2014 Meningococcal B Immunization Completed 07/20/2018, 07/07/2017 Rotavirus Immunization Aged Out No lo nger eligible based on patient's age to complete this topic Insurance MEDICAID [place] Care Teams Hospital Orderly Relationship Specialty Start Date End Date Provider, None [place] PCP - General 06/24/23
--- OUTSIDE RECORDS SUMMARY | 2024-07-07 16:34 | XMS_ITS | Clinical Summary ---
Author Organization [facility] Address [facility] [place] [address] Care Team Providers Care Operations Research Analyst Name Role Phone None, Provider MD Primary Care Provider Unavaila ble Allergies No known active allergies Medications ondansetron 4 MG disintegrating tablet Take 1 tablet (4 mg total) by mouth every 8 (eight) hours as needed for Nausea. 20 tablet 0 Active Social History Tobacco Use Types Packs/Day Years Used Date Smoking Tobacco: Some Days Smokeless Tobacco: Never Alcohol Use Standard Drinks/Week Comments Never 0 (1 standard drink = 0.6 oz pur e alcohol) AUDIT-C Answer Date Recorded Frequency of Alcohol Consumption Never 05/05/2019 Average Number of Drinks Not on file 020 Frequency of Binge Drinking Not on file 04/2019 Comments No Sex and Gender Information Value Date Recorded Sex Assigned at Not on file Legal Sex Female 4:08 PM PERSONAL LINES INSURANCE ADVISOR Gender Identity Not on file Sexual Orientation Not on file Last Filed Vital Signs Vital Sign Reading Time Taken Comments Blood Pressure 128/91 05/05/2019 5:30 PM PERSONAL LINES INSURANCE ADVISOR Pulse 88 05/05/2019 5:28 PM PERSONAL LINES INSURANCE ADVISOR Temperature 35.8 C (96.5 F) 05/05/2019 4:20 PM PERSONAL LINES INSURANCE ADVISOR Respiratory Rate 16 05/05/2019 5:28 PM PERSONAL LINES INSURANCE ADVISOR Oxygen Saturation 98% 05/05/2019 5:28 PM PERSONAL LINES INSURANCE ADVISOR Inhaled Oxygen Concentration - - Weight 90.7 kg (200 lb) 05/05/2019 4:20 PM PERSONAL LINES INSURANCE ADVISOR Height 152.4 cm (5') 05/05/2019 4:20 PM PERSONAL LINES INSURANCE ADVISOR Body Mass Index 39.06 05/05/2019 4:20 PM PERSONAL LINES INSURANCE ADVISOR Plan of Treatment Health Maintenance Due Date Last Done Comments Cervical Cancer Screening Pa p Smear (Age 21 to 29) Every 3 Years 2000 Cervical Cancer Screening 2000 Annual Physical 07/12/2003 Pneumococcal Vaccine: Pediat rics (0 to 5 Years) and At-Risk Patients (6 to 64 Years) (1 of 2 - PCV) 2006 HPV Vaccines (1 - 3-dose series) 07/12/2015 Meningococcal B Vaccine (1 o f 2 - Standard) 2016 Hepatitis C 2018 DTaP, Tdap and Td Vaccines ( 1 - Tdap) 07/12/2019 Hepatitis B Vaccines (1 of 3 - 19+ 3-dose series) 07/12/2019 COVID-19 Vaccine (1 - 2023-2 5 season) 2023 Meningococcal Vaccine Aged Out No dennis mat eligible based on patient's age to complete this topic RSV Immunizations Under 20 Months Aged Out No longer eligible based on patient's age to complete this topic Insurance MEDICAID Care Teams Operations Research Analyst Relationship Specialty Start Date End Date None, Provider, PCP - General 05/05/19
--- OUTSIDE RECORDS SUMMARY | 2024-07-07 16:35 | XMS_ITS | Referral Summary ---
Author Organization [facility] Address [address] [place] [address] Care Team Providers Care Fagoting Machine Operator Name Role Phone No, Physician Primary Care Provider [phone] Allergies Active Allergy Reactions Criticality Noted Date Comments Metoclopramide Anxiety,Hallucinations Medium 4 Venom-Honey Bee Swelling Medium 05/04/2016 Medications escitalopram (LEXAPRO) 10 mg tablet daily. 07/21/19 18 Active traMADol (ULTRAM) 50 mg tablet Take 1-2 tablets (50-100 mg total) by mouth every 6 (six) hours as needed for pain. 20 tablet 12/23/19 18 Active Additional Information Patient not taking.Reported on 06/16/2021 ondansetron (ZOFRAN) 4 mg tablet Take 1 tablet (4 mg total) by mouth every 6 (six) hours 12 tablet 05/07/19 20 Active Additional Information Patient not taking.Reported on 06/16/2021 omeprazole (PriLOSEC) 20 mg capsule Take 1 capsule (20 mg total) by mouth daily 30 capsule 05/07/19 20 Active ciprofloxacin-dexA METHasone (CIPRODEX) otic suspensionIndicati ons:Acute Staphylococcus Aureus Otitis Externa Administer 4 drops into the right ear 4 (four) times a day For 5 days 7.5 mL 06/01/19 22 Active fluticasone propionate (FLONASE) 50 mcg/actuation nasal sprayIndications:D ysfunction of both eustachian tubes Administer 2 sprays into each nostril daily 16 g 11 06/17/19 22 Active traMADoL (ULTRAM) 50 mg tablet Take 1 tablet (50 mg total) by mouth every 6 (six) hours P.r.n. pain not relieved by ucpy-qvi-ycbelkn pain medication. Take with food. Collaborating physician Cirilo Early MD 15 tablet 02/24/20 22 Active ibuprofen (ADVIL,MOTRIN) 600 mg tablet Take 1 tablet (600 mg total) by mouth every 6 (six) hours as needed for pain 30 tablet 06/24/19 23 Active methocarbamoL (ROBAXIN) 500 mg tablet Take 1 tablet (500 mg total) by mouth 3 (three) times a day as needed for muscle spasms 15 tablet 06/24/19 23 Active acetaminophen (TYLENOL) 500 mg tablet Take 2 tablets (1,000 mg total) by mouth every 8 (eight) hours as needed for pain for up to 20 doses 40 tablet 06/24/19 23 Active lidocaine (LIDODERM) 5 % Place 1 patch on the skin daily Remove & discard patch within 12 hours or as directed by MD. 30 patch 06/24/19 23 Active ondansetron ODT (ZOFRAN-ODT) 8 mg disintegrating tablet Take 1 tablet (8 mg total) by mouth every 8 (eight) hours as needed for nausea or vomiting 30 tablet 10/19/19 23 Active nitrofurantoin monohydrate (MACROBID) 100 mg capsule Take 1 capsule (100 mg total) by mouth 2 (two) times a day 10 capsule 10/19/19 23 Active SUMAtriptan (IMITREX) 50 mg tabletIndications: Migraine Take 1 tablet (50 mg total) by mouth once as needed for migraine May repeat dose once in 2 hours if no relief. Do not exceed 2 doses in 24 hours. 9 tablet 03/02/20 24 Active Active Problems Problem Noted Date Diagnosed Date Rotator cuff strain, left, initial encounter Dysfunction of both eustachian tubes 06/16/2021 Assessment & Plan (06/16/2021 4:37 PM CDT): Call if ears plug up again Flonase 2 sprays into each nostril while looking down over the sink, do not sniff in or blow nose after use for at least 30 minutes daily Referred otalgia of both ears 06/16/2021 Assessment & Plan (06/16/2021 4:39 PM CDT): TMJ dysfunction discussed and Handout provided Muscle strain of left thigh 01/29/2019 Abdominal pain 07/20/2017 Anxiety 07/20/2017 Depression 07/20/2017 Headache 07/20/2017 Spells of decreased attentiveness 06/14/2017 Chest pain 03/07/2009 Resolved Problems Problem Noted Date Diagnosed Date Resolved Date Impacted cerumen of left ear 06/16/2021 06/16/2021 Assessment & Plan (06/16/2021 4:39 PM CDT): Avoid ear cleaning techniques Avoid water to ears Pediculosis capitis 08/23/2016 11/01/19 18 Overview (08/27/2016): Head lice Social History Tobacco Use Types Packs/Day Years Used Date Smoking Tobacco: Never Smokeless Tobacco: Never Tobacco Cessation:Counseling Given: Not Answered Alcohol Use Standard Drinks/Week Comments No 0 (1 standard drink = 0.6 oz pur e alcohol) Personal Safety Answer Date Recorded Have you ever been in or are you currently in a harmful physical or emotional relationship or is someone making you feel afraid or unsafe? 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 Gender Identity Not on file Sexual Orientation Not on file Occupation Industry Job Start Date Job End Date student Not on file Not on file Not on file Last Filed Vital Signs Vital Sign Reading Time Taken Comments Blood Pressure 126/61 03/02/2024 5:04 PM INTERNET PROJECT MANAGER Pulse 70 03/02/2024 5:04 PM INTERNET PROJECT MANAGER Temperature 36.8 C (98.3 F) 03/02/2024 2:56 PM INTERNET PROJECT MANAGER Respiratory Rate 18 03/02/2024 2:56 PM INTERNET PROJECT MANAGER Oxygen Saturation 100% 03/02/2024 5:04 PM INTERNET PROJECT MANAGER Inhaled Oxygen Concentration - - Weight 81.6 kg (180 lb) 03/02/2024 2:56 PM INTERNET PROJECT MANAGER Height 152.4 cm (5') 03/02/2024 2:56 PM INTERNET PROJECT MANAGER Body Mass Index 35.15 03/02/2024 2:56 PM INTERNET PROJECT MANAGER Plan of Treatment Not on file Insurance IDPA [facility] CHOICE PLUS IDPA [id number] CHOICE PLUS IDPA Care Teams Fagoting Machine Operator Relationship Specialty Start Date End Date No, Physician PCP - General 01/29/19
--- OUTSIDE RECORDS SUMMARY | 2024-07-07 16:35 | XMS_ITS | Clinical Summary ---
Author Organization [facility] Address [address] [place] [address] Care Team Providers Care Manager Site Name Role Phone No, Physician Primary Care Provider [phone] Allergies Active Allergy Reactions Criticality Noted Date [...] (six) hours P.r.n. pain not relieved by fbei-ohd-hriztrl pain medication. Take with food. Collaborating physician [...] 08/23/2016 11/01/19 18 Overview (08/27/2016): Head lice Surgical History Surgery Date Site/Laterality Comments OTHER SURGICAL HISTORY Tubes in ears 2005 OTHER SURGICAL HISTORY Tonsils and adenoids 2009 TONSILECTOMY, ADENOIDECTOMY, BILATERAL MYRINGOTOMY AND TUBES TYMPANOSTOMY TUBE PLACEMENT [place] TONSILLECTOMY & ADENOIDEC BARB <AGE 12 Tonsillectomy With Adenoidectomy - (Added by TW Conv) MYRINGOTOMY W/ TUBES Myringotomy - (Added by TW Conv) Medical History Medical History Date Comments Peripheral pulmonary artery stenosis Asthma Pediculosis capitis 08/23/2016 Head lice Obesity Family History Medical History Relation Name Comments Epilepsy Maternal Grandfather Family history of epilepsy - (Added by TW Conv) Anxiety disorder Mother Anxiety - ( Added by TW Conv) Asthma Mother Family history of asthma - (Added by TW Conv) COPD Mother Family history of chronic obstructive pulmonary disease - (Added by TW Conv) OCD Mother OCD (obsessive compulsive disorder) - (Added by TW Conv) PTSD Mother PTSD (post-trau matic stress disorder) - (Added by TW Conv) Diabetes Other 1 Grandma Diabetes mellit us; Hypertension Other 1 Grandma Hypertension; Other Other 1 Grandma Anesthesia reac tion; Hypertension Other 4 Grandpa Hypertension; Cancer Other 5 Great grandma Cancer; Breast cancer Other 6 Family history of Cancer, breast; Other Other 7 Family history of Cancer, cervical; Lung cancer Other 8 Family history of Cancer, lung; Relation Name Status Comments Maternal Grandfather Mother Other 1 Grandma Alive Other 2 Grandma Alive Other 3 Grandma Alive Other 4 Grandpa Alive Other 5 Great grandma Alive Other 6 Other 7 Other 8 Social History Tobacco Use Types Packs/Day Years [...] on file Legal 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 Gender Identity Not on file Sexual Orientation Not on file Occupation Industry Job Start Date Job End Date student Not on file Not on file Not on file Obstetrics History Last Filed Vital Signs Vital Sign Reading Time Taken Comments Blood Pressure 126/61 03/02/2024 5:04 PM PCB DESIGN ENGINEER Pulse 70 03/02/2024 5:04 PM PCB DESIGN ENGINEER Temperature 36.8 C (98.3 F) 03/02/2024 2:56 PM PCB DESIGN ENGINEER Respiratory Rate 18 03/02/2024 2:56 PM PCB DESIGN ENGINEER Oxygen Saturation 100% 03/02/2024 5:04 PM PCB DESIGN ENGINEER Inhaled Oxygen Concentration - - Weight 81.6 kg (180 lb) 03/02/2024 2:56 PM PCB DESIGN ENGINEER Height 152.4 cm (5') 03/02/2024 2:56 PM PCB DESIGN ENGINEER Body Mass Index 35.15 03/02/2024 2:56 PM PCB DESIGN ENGINEER Plan of Treatment Health Maintenance Due Date Last Done Comments Cervical Cancer Screening 2000 Depression Screening 2000 Hepatitis C Screening 2000 Regular Well Visit/Exam 18-64 2018 DTaP/Tdap/Td Vaccine (6 - Td or Tdap) 12/08/2021 12/09/2011, 09/09/2005, 01/24/2002, Additional history exists Influenza Vaccine (#1) 2023 Pneumococcal vaccine <65 Aged Out 001, 2000, 2000 No longer eligible based on patient's age to complete this topic Hepatitis B Screening Completed 04/19/2001 , 2000, 2000 Varicella Vaccines Completed 07/08/2014, 01/24/2002 HPV Vaccines Completed 07/07/2017, 07/08/2014 Meningococcal B Vaccine Completed 07/20/2018, 07/[address] CHOICE PLUS [facility] H[facility]/PPO Address: [facility] [address] [place] [address] IDPA [facility] HMO/PPO Address: [address] [address] [place] [address] IDPA [facility] H[facility]/PPO Address: [address] [address] [place] [address] [facility] [address] CHOICE PLUS [facility] HMO/PPO Address: [address] [address] [place] [address] IDPA Care Teams Manager Site Relationship Specialty Start Date End Date No, Physician PCP - General 01/29/19
[2024-07-07 16:36] VITALS: BP 133/76; PULSE 118; RESP 20; TEMP 36.8; O2SAT 97
[2024-07-07 16:53] LABS: EDSTREPNEGPOS1 Negative (Negative)
--- NOTE | 2024-07-07 17:10 | ED.GENADULT ---
HPI - General Adult General Chief complaint: Upper Respiratory Infection Stated complaint: Sore Throat, Congestion Source: patient Mode of arrival: ambulatory Limitations: no limitations History of Present Illness HPI narrative: Patient presents for evaluation of sore throat since yesterday. She also reports cervical lymphadenopathy. She denies any fever, chills, nausea, vomiting, cough shortness of breath. No recent sick contacts to her knowledge. She is not taking any medications to assist with her symptoms. Related Data Home Medications ?Medication ?Instructions ?Recorded ?Confirmed ?Last Taken ?Type etonogestrel 68 mg subdermal 1 implant subdermal ONCE 03/09/24 03/09/24 Unknown History implant (Nexplanon) Allergies Allergy/AdvReac Type Severity Reaction Status Date / Time bee pollen Allergy Unknown Swelling Verified 07/07/24 16:56 metoclopramide (From Reglan) Allergy Anxiety Verified 07/07/24 16:56 Review of Systems Review of Systems: CONSTITUTIONAL: Denies fever, chills, or sweats. EYES: Denies visual changes, redness, or discharge. ENT: Reports sore throat and cervical lymphadenopathy. Denies rhinorrhea, congestion, or otalgia. CARDIOVASCULAR: Denies chest pain, palpitations, or edema. RESPIRATORY: Denies cough or dyspnea. GASTROINTESTINAL: Denies abdominal pain, nausea, vomiting, or diarrhea. GENITOURINARY: Denies dysuria or hematuria. SKIN: Denies rash or itching. MUSCULOSKELETAL: Denies back pain, joint pain, or myalgia. NEUROLOGIC: Denies headache, numbness, dizziness, or weakness. PSYCHIATRIC: Denies anxiety or depression. [facility] Past Medical History Medical History Fracture Left forearm Anxiety Depression Surgical History Surgical History History of adenoidectomy Hx of tonsillectomy Family History Family History Mother Heart disease COPD (chronic obstructive pulmonary disease) Social History Social History Social History: Marijuana use Smoking status: Never smoker Alcohol intake: never Substance use: current Substance use type: marijuana Living arrangements: with family Occupation/Education: occupation Additional occupation/education comments: Works at [employer] Gender identity (if verbalized by the patient): Female Spiritual care concerns: No Exam Narrative: GENERAL: Well-appearing, well-nourished, and in no acute distress. HEAD: Normocephalic, atraumatic. EYES: PERRLA and EOMI. ENT: Nares clear, no rhinorrhea or epistaxis. Mucous membranes moist. Oropharynx without tonsillar hypertrophy exudate or other lesions. Bilateral TMs pearly tovar nonbulging NECK: Supple. No adenopathy or masses. No carotid bruits or JVD CHEST: Clear to auscultation. No respiratory distress. No wheezes rales or rhonchi HEART: Regular rate and rhythm. No murmur heard. Normal peripheral pulses. ABDOMEN: Soft, nontender, nondistended, normal active bowel sounds. EXTREMITIES: Normal range of motion. No edema. SKIN: Warm, dry, no rash. NEURO: No focal deficits. Alert and oriented x3. PSYCH: Normal mood and affect. Course Course Emergency Course: This is a 23-year-old female who presented for evaluation of sore throat. Rapid strep negative. Will send throat culture. Exam is consistent with viral pharyngitis. Increase fluid intake. OTC agents for symptom management. Follow up with primary provider. Go to the ER for worsening symptoms. Pt in agreement with plan of care. Level of Care: Express Care Visit Vital Signs Vital signs: Vital Signs Temperature 36.8 C 07/07/24 16:36 Pulse Rate 118 H 07/07/24 16:36 Respiratory Rate 20 07/07/24 16:36 Blood Pressure 133/76 07/07/24 16:36 Pulse Oximetry 97 07/07/24 16:36 Oxygen Delivery Room Air 07/07/24 16:36 Temperature 36.8 C 07/07/24 16:36 Pulse Rate 118 H 07/07/24 16:36 Respiratory Rate 20 07/07/24 16:36 Blood Pressure 133/76 07/07/24 16:36 Pulse Oximetry 97 07/07/24 16:36 Oxygen Delivery Room Air 07/07/24 16:36 Medical Decision Making Vital Signs Vital Signs: Vital Signs Temperature 36.8 C 07/07/24 16:36 Pulse Rate 118 H 07/07/24 16:36 Respiratory Rate 20 07/07/24 16:36 Blood Pressure 133/76 07/07/24 16:36 Pulse Oximetry 97 07/07/24 16:36 Oxygen Delivery Room Air 07/07/24 16:36 Temperature 36.8 C 07/07/24 16:36 Pulse Rate 118 H 07/07/24 16:36 Respiratory Rate 20 07/07/24 16:36 Blood Pressure 133/76 07/07/24 16:36 Pulse Oximetry 97 07/07/24 16:36 Oxygen Delivery Room Air 07/07/24 16:36 Lab Data Labs: Lab Results 07/07/24 Range/Units 16:40 POC Grp A Strep Screen Negative (Negative) Discharge Plan Discharge Clinical Impression: Pharyngitis Patient Disposition: Home, Self-Care Condition: Stable Instructions: Antibiotic Form, Pharyngitis (ED) Patient Language: Sinhala Prescriptions: No Action Nexplanon 68 mg Implant 1 implant SUBDERMAL ONCE Rx Instructions: as a single dose Follow-up/Referrals: Nena Gardiner MD [Physician] - Stand Alone Forms: Work/School Release IP Time of Disposition: 16:54
== END 2024-07-07 16:58 | disposition home or self-care (01) ==
PROVIDERS: Emergency Provider Nurse Practitioner
DX: J02.9 Acute pharyngitis, unspecified (principal); F12.90 Cannabis use, unspecified, uncomplicated
CPT/HCPCS: 87081; 87880; 99213; G0463

== ENCOUNTER 2024-12-17 18:36 | Emergency (ER) | payer OTHER, SELFPAY ==
[2024-12-17 18:44] VITALS: BP 115/64; PULSE 84; RESP 20; TEMP 36.8; O2SAT 98
--- NOTE | 2024-12-17 19:01 | ED.SKABFB ---
HPI - Skin/Abscess/Foreign Bdy General Chief complaint: Skin/Abscess/Foreign Body Stated complaint: right thigh bump Time Seen by Provider: 12/17/24 19:01 Source: patient Mode of arrival: ambulatory Limitations: no limitations History of Present Illness HPI narrative: 24-year-old female presented for complaint of a Painful red bump to the right inner upper thigh. Onset 3 days. Says she applied Prid to the site but redness continues to spread. Denies any other skin concerns. Related Data Home Medications ?Medication ?Instructions ?Recorded ?Confirmed ?Last Taken ?Type etonogestrel 68 mg subdermal 1 implant subdermal ONCE 03/09/24 03/09/24 Unknown History implant (Nexplanon) Allergies Allergy/AdvReac Type Severity Reaction Status Date / Time bee pollen Allergy Unknown Swelling Verified 07/07/24 16:56 metoclopramide (From Reglan) Allergy Anxiety Verified 07/07/24 16:56 Review of Systems Review of Systems: CONSTITUTIONAL: Denies body aches, fever, chills, or sweats. EYES: Denies visual changes, redness, or discharge. ENT: Denies rhinorrhea, congestion CARDIOVASCULAR: Denies chest pain, palpitations, or edema. RESPIRATORY: Denies cough or dyspnea. GASTROINTESTINAL: Denies abdominal pain, nausea, vomiting, or diarrhea. SKIN: reports boil right thigh MUSCULOSKELETAL: Denies back pain, joint pain, or myalgia. NEUROLOGIC: Denies headache, numbness, tingling, or weakness. [facility] Past Medical History Medical History Fracture Left forearm Anxiety Depression Surgical History Surgical History History of adenoidectomy Hx of tonsillectomy Family History Family History Mother Heart disease COPD (chronic obstructive pulmonary disease) Social History Social History Social History: Marijuana use Smoking status: Never smoker Alcohol intake: never Substance use: current Substance use type: marijuana Living arrangements: with family Occupation/Education: occupation Additional occupation/education comments: Works at [employer] Gender identity (if verbalized by the patient): Female Spiritual care concerns: No Comments At time of signature, I have reviewed and agree with nursing past medical, surgical, social and family history unless otherwise noted. Please see nursing chart for further information. There is no relevant family history pertinent to the presenting complaint Exam Narrative: GENERAL: Well-appearing EYES: conjunctivae clear, and EOMI. ENT: Mucous membranes moist. Oropharynx without edema, erythema or lesions. NECK: Supple. No lymphadenopathy CHEST: Clear to auscultation. HEART: Regular rate and rhythm. SKIN: Warm, dry. right upper medial thigh with 2 cm diameter area of dark erythema, tender warm area of fluctuance with surrounding light erythema 15 cm. NEURO: Alert and oriented x3. Course Course Emergency Course: Patient is aware of diagnosis, understands and agrees to treatment plan. Anticipatory guidance given. Patient agrees to follow-up as directed and is aware of reasons to seek care at the emergency department. Portions of this record may have been created with voice recognition software Level of Care: Express Care Visit Vital Signs Vital signs: Vital Signs Temperature 98.2 F 12/17/24 18:44 Pulse Rate 84 12/17/24 18:44 Respiratory Rate 20 12/17/24 18:44 Blood Pressure 115/64 12/17/24 18:44 Pulse Oximetry 98 12/17/24 18:44 Oxygen Delivery Room Air 12/17/24 18:44 Temperature 98.2 F 12/17/24 18:44 Pulse Rate 84 12/17/24 18:44 Respiratory Rate 20 12/17/24 18:44 Blood Pressure 115/64 12/17/24 18:44 Pulse Oximetry 98 12/17/24 18:44 Oxygen Delivery Room Air 12/17/24 18:44 Reviewed Procedures Abscess I/D right medial thigh: Local Anesthetic: lidocaine 1% Amount of anesthesia used (mL): 1 Technique: incised with #11 blade Irrigation: Yes Packing used?: none I&D Results: Pus and Blood Abcess I&D Additional Comments: The procedure and its alternatives were reviewed with patient. Risks were reviewed with patient including infection and damage to nearby structures. Patient provided verbal informed consent. The patient was positioned appropriately. Local anesthesia achieved. Single straight Incision made to center of most fluctuant area. Moderate amount of thick purulent discharge expelled with manual pressure. Wound irrigated and probed for loculations. See above. Pt tolerated the procedure well, no complications. Dressing applied per RN. MDM - Skin/Abscess/Foreign Bdy MDM Narrative Medical decision making narrative: Discussed physical exam findings; tolerated I&D of abscess. Reviewed RX, Advised supportive measures and signs/symptoms to go to the ER. Pt is appropriate for outpt treatment and f/u. Differential Diagnosis Differential diagnosis: Likely abscess of skin or subcutaneous tissue, viral exanthem, dermatophytosis, urticaria, herpes zoster, cellulitis, eczema, insect bites, impetigo and contact dermatitis Discharge Plan Discharge Clinical Impression: Abscess of skin or subcutaneous tissue Patient Disposition: Home Condition: Stable Instructions: Antibiotic Form, Abscess (ED) Additional Instructions: You had an abscess drained today. You may shower and Cleanse with warm soapy water Warm compresses at least 4 times a day to the site to help expel any additional drainage. Keep your wound covered while draining Take antibiotic as directed Tylenol and ibuprofen every 8 hours for pain as needed Follow up with your primary care physician in 3 days for a wound check. Go to the Emergency Department immediately if you develop any of the following symptoms: Fevers, Increased redness, pain, or swelling around where your abscess was, generalized weakness or vomiting or any other concerns Patient Language: Setswana Prescriptions: New ibuprofen 800 mg tablet 800 mg PO TID PRN (Reason: pain) Qty: 15 0RF doxycycline hyclate 100 mg tablet 100 mg PO BID 7 Days Qty: 14 0RF No Action Nexplanon 68 mg Implant 1 implant SUBDERMAL ONCE Rx Instructions: as a single dose Follow-up/Referrals: PHYSICIAN,INTERNATIONAL FLIGHT ATTENDANT [Primary Care Provider, Internal Medicine] Stand Alone Forms: Work/School Release IP
--- OUTSIDE RECORDS SUMMARY | 2024-12-17 19:21 | XMS_ITS | Clinical Summary ---
Author Organization [facility] Address [address] [place] [address] Care Team Providers Care Ammonia Technician Name Role Phone No, Physician Primary Care Provider [phone] Allergies Active Allergy Reactions Criticality Noted Date [...] (six) hours P.r.n. pain not relieved by [id number] pain medication. Take with food. Collaborating physician [...] 24 hours. 9 tablet 03/02/20 24 Active hydrOXYzine (ATARAX) 25 mg tabletIndications: Local reaction to insect sting, accidental or unintentional, initial encounter Take 1 tablet (25 mg total) by mouth every 6 (six) hours PRN itch and allergic reaction. Collaborating physician Cirilo Early MD 30 tablet 09/26/19 25 Active triamcinolone (KENALOG) 0.1 % cream Apply topically 2 (two) times a day Apply to area of itch and rash 2-3 times daily. Collaborating physician Cirilo Early MD 80 g 1 09/26/19 25 Active famotidine (PEPCID) 20 mg tabletIndications: Local reaction to insect sting, accidental or unintentional, initial encounter Take 1 tablet (20 mg total) by mouth 2 (two) times a day for 3 days Collaborating physician Cirilo Early MD 6 tablet 09/26/19 25 Active Active Problems Problem Noted Date Diagnosed Date Local reaction to insect sting 09/25/2024 Rotator cuff strain, left, initial encounter Dysfunction [...] 08/23/2016 11/01/19 18 Overview (08/27/2016): Head lice Encounters Date Type Department Care Team Description 09/25/2024 5:01 PM CDT - 09/25/2024 6:09 PM CDT Emergency [facility] Emergency Department [address] [place] [address] Local reaction to insect sting, accidental or unintentional, initial encounter (Primary Dx) Discharge Disposition: Discharge to home or self care from Last 3 Months Surgical History Surgery Date Site/Laterality Comments OTHER SURGICAL HISTORY Tubes in ears 2006 OTHER SURGICAL HISTORY Tonsils and adenoids 2010 TONSILECTOMY, ADENOIDECTOMY, BILATERAL MYRINGOTOMY AND TUBES TYMPANOSTOMY TUBE PLACEMENT [place] TONSILLECTOMY & ADENOIDEC BARB <AGE 12 Tonsillectomy With Adenoidectomy - (Added by [facility] Conv) MYRINGOTOMY W/ TUBES Myringotomy - (Added by Conv) Medical History Medical History Date Comments [...] making you feel afraid or unsafe? 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 Gender Identity Not on file Sexual Orientation Not on file Occupation Industry Job Start Date Job End Date student Not on file Not on file Not on file Obstetrics History Last Filed Vital Signs Vital Sign Reading Time Taken Comments Blood Pressure 104/85 09/25/2024 4:15 PM CDT Pulse 82 09/25/2024 4:14 PM CDT Temperature 36.8 C (98.2 F) 09/25/2024 4:15 PM CDT Respiratory Rate 18 09/25/2024 4:14 PM CDT Oxygen Saturation 97% 09/25/2024 4:14 PM CDT Inhaled Oxygen Concentration - - Weight 81.6 kg (180 lb) 09/25/2024 4:14 PM CDT Height 152.4 cm (5') 09/25/2024 4:14 PM CDT Body Mass Index 35.15 09/25/2024 4:14 PM CDT Plan of Treatment Health Maintenance Due Date Last Done Comments Cervical Cancer Screening 2000 Depression Screening 2000 Hepatitis C Screening 2000 Regular Well Visit/Exam 18-64 2018 DTaP/Tdap/Td Vaccine (6 - Td or Tdap) 12/08/2021 12/09/2011, 09/09/2005, 01/24/2002, Additional history exists Influenza Vaccine (#1) 2024 Pneumococcal vaccine <65 Aged Out 001, 2000, 2000 No longer eligible based on patient's age to complete this topic Hepatitis B Screening Completed 04/19/2001 , 2000, 2000 Varicella Vaccines Completed 07/08/2014, 01/24/2002 HPV Vaccines Completed 07/07/2017, 07/08/2014 Insurance [facility] CHOICE [facility] HMO/PPO Address: [address] [address] [place] [address] [employer] [facility] H[facility]/PPO Address: [facility] [address] [place] [address] [employer] [facility] H[facility]/PPO Address: [address] [address] [place] [address] [facility] CHO[employer] [facility] HMO/PPO Address: [address] [address] [place] [address] [employer] Care Teams Ammonia Technician Relationship Specialty Start Date End Date No, Physician PCP - General 01/29/19
--- OUTSIDE RECORDS SUMMARY | 2024-12-17 19:21 | XMS_ITS | Clinical Summary ---
Author Organization [facility] Address [address] [place] [address] Phone Care Team Providers Care Product Manufacturing Professional Name Role Phone Provider, None Primary Care [...] 2000 Pap Smear 2021 Influenza Immunization (#1) 2024 06/14/2019 SARS-COV-2 Immunization ( season) 2024 Respiratory Syncytial Virus (RSV) Immunization (Adult) (-dose [...] (ACWY) Completed 07/07/2017, 07/08/2014 Meningococcal B Immunization Discontinued 07/20/2018, 07/07/2017 Rotavirus Immunization Aged Out No lo nger eligible based on patient's age to complete this topic Insurance MEDICAID [place] Care Teams Product Manufacturing Professional Relationship Specialty Start Date End Date Provider, None [place] PCP - General 06/24/23
--- OUTSIDE RECORDS SUMMARY | 2024-12-17 19:21 | XMS_ITS | Clinical Summary ---
Author Organization [facility] Address [facility] [place] [address] Care Team Providers Care Reinforcing Metal Worker Name Role Phone None, Provider MD Primary [...] on file Legal Sex Female 4:08 PM DIRECTOR OF REHABILITATION AND WELLNESS Gender Identity Not on file Sexual Orientation Not on file Last Filed Vital Signs Vital Sign Reading Time Taken Comments Blood Pressure 128/91 05/05/2019 5:30 PM DIRECTOR OF REHABILITATION AND WELLNESS Pulse 88 05/05/2019 5:28 PM DIRECTOR OF REHABILITATION AND WELLNESS Temperature 35.8 C (96.5 F) 05/05/2019 4:20 PM DIRECTOR OF REHABILITATION AND WELLNESS Respiratory Rate 16 05/05/2019 5:28 PM DIRECTOR OF REHABILITATION AND WELLNESS Oxygen Saturation 98% 05/05/2019 5:28 PM DIRECTOR OF REHABILITATION AND WELLNESS Inhaled Oxygen Concentration - - Weight 90.7 kg (200 lb) 05/05/2019 4:20 PM DIRECTOR OF REHABILITATION AND WELLNESS Height 152.4 cm (5') 05/05/2019 4:20 PM DIRECTOR OF REHABILITATION AND WELLNESS Body Mass Index 39.06 05/05/2019 4:20 PM DIRECTOR OF REHABILITATION AND WELLNESS Plan of Treatment Health Maintenance Due Date Last Done Comments Cervical Cancer Screening Pa p Smear (Age 21 to 29) Every 3 Years 2000 Cervical Cancer Screening 2000 Annual Physical 07/12/2003 HPV Vaccines (1 - 3-dose series) 07/12/2015 Hepatitis C 2018 DTaP, Tdap and Td Vaccines ( 1 - Tdap) 07/12/2019 Hepatitis B Vaccines (1 of 3 - 19+ 3-dose series) 07/12/2019 Pneumococcal Vaccine: Pediat rics (0 to 5 Years) and At-Risk Patients (6 to 49 Years) (1 of 2 - PCV) 07/12/2019 COVID-19 Vaccine ( - 2023-2 5 season) 2024 Meningococcal B Vaccine Aged Out No l onger eligible based on patient's age to complete this topic Meningococcal Vaccine Aged Out No dennis mat eligible based on patient's age to complete this topic RSV Immunizations Under 20 Months Aged Out No longer eligible based on patient's age to complete this topic Insurance MEDICAID Care Teams Reinforcing Metal Worker Relationship Specialty Start Date End Date None, Provider, PCP - General 05/05/19
== END 2024-12-17 19:43 | disposition home or self-care (01) ==
PROVIDERS: Emergency Provider Nurse Practitioner Family
DX: L02.415 Cutaneous abscess of right lower limb (principal); F12.90 Cannabis use, unspecified, uncomplicated
CPT/HCPCS: 10060; 99213; G0463

== ENCOUNTER 2025-01-31 18:08 | Emergency (ER) | payer OTHER, SELFPAY ==
--- OUTSIDE RECORDS SUMMARY | 2025-01-31 18:12 | XMS_ITS | Clinical Summary ---
Author Organization [facility] Address [address] [place] [address] Care Team Providers Care Independent Crop Consultant Name Role Phone No, Physician Primary Care Provider [phone] Allergies Active Allergy Reactions Criticality Noted Date [...] (six) hours P.r.n. pain not relieved by hpvq-fqg-[id number] pain medication. Take with food. 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
--- OUTSIDE RECORDS SUMMARY | 2025-01-31 18:12 | XMS_ITS | Clinical Summary ---
Author Organization [facility] Address [address] [place] [address] Phone Care Team Providers Care Member Of The Legislative Council Name Role Phone Provider, None Primary Care [...] this topic Insurance [place]ID [place] Care Teams Member Of The Legislative Council Relationship Specialty Start Date End Date Provider, None [place] PCP - General 06/24/23
[2025-01-31 18:21] VITALS: BP 151/92; PULSE 93; RESP 18; TEMP 37.2; O2SAT 98
--- NOTE | 2025-01-31 18:24 | ED.URI ---
HPI - URI/Sore Throat General Chief Complaint: Upper Respiratory Infection Stated Complaint: URI Symptoms Time Seen by Provider: 01/31/25 18:25 Source: patient, RN notes reviewed and old records reviewed Mode of arrival: ambulatory Limitations: no limitations History of Present Illness HPI Narrative: 24-year-old female presents to the [facility] with complaints of a runny nose that wound. , sore throat, congestion and a cough that started yesterday. Did take 1 dose of DayQuil which has not helped her symptoms. Denies any fevers. Denies any shortness of breath or chest pain. Onset (ago): day(s) (1) Treatments prior to arrival: cold medicine Related Data Home Medications ?Medication ?Instructions ?Recorded ?Confirmed ?Last Taken ?Type etonogestrel 68 mg subdermal 1 implant subdermal ONCE 03/09/24 03/09/24 Unknown History implant (Nexplanon) Allergies Allergy/AdvReac Type Severity Reaction Status Date / Time bee pollen Allergy Unknown Swelling Verified 01/31/25 18:21 metoclopramide (From Reglan) Allergy Anxiety Verified 01/31/25 18:21 Review of Systems Review of Systems: All systems reviewed & are unremarkable except as noted in HPI and below Constitutional: Constitutional: Reports no additional constitutional complaints ENT: Reports as per HPI Cardiovascular: Cardiovascular: Reports no additional cardiovascular complaints, Denies chest pain and Denies dyspnea Respiratory: Respiratory: Reports as per HPI, Denies chest congestion, Reports cough and Denies dyspnea Musculoskeletal: Musculoskeletal: Reports no additional musculoskeletal complaints Integumentary/Breasts: Skin/Breast: Reports system reviewed and no additional complaints, except as docu PMFSH Past Medical History Medical History Fracture Left forearm Anxiety Depression Surgical History Surgical History History of adenoidectomy Hx of tonsillectomy Family History Family History Mother Heart disease COPD (chronic obstructive pulmonary disease) Social History Social History Social History: Marijuana use Smoking status: Never smoker Alcohol intake: never Substance use: current Substance use type: marijuana Living arrangements: with family Occupation/Education: occupation Additional occupation/education comments: Works at [employer] Gender identity (if verbalized by the patient): Female Spiritual care concerns: No Comments At the time of my signature, I reviewed and agree with the nursing past medical, surgical, social, and family history. There is no relevant family history pertinent to the patient complaint. Exam Const: General: cooperative, healthy appearing, comfortable, no acute distress, well developed, alert and well nourished Nutritional Appearance: well nourished Orientation/consciousness: patient oriented x3 Limitations: no limitations HENMT: Head: normal to inspection Ears: hearing grossly normal bilaterally, external ears normal, TM's normal bilaterally, EAC's normal, mastoids normal and no periauricular adenopathy Face/Nose/Sinus: Nasal discharge present clear bilateral and face symmetric Face and sinus: normal facial exam, sinuses nontender and face symmetric Mouth: Yes Normal oral and palatal mucosa present, Yes lip normal, Yes tongue normal and Yes moist mucous membranes Throat: posterior oropharynx normal, uvula midline, postnasal drainage and no uvular edema Eyes: General: appearance normal, both eyes and all related structures Alignment and Position: alignment normal Neck: Neck: normal visual inspection, full ROM, no lymphadenopathy and no meningeal signs Chest: Chest palpation & inspection: normal inspection of the chest Resp: Effort & Inspection: normal respiratory effort and able to speak in complete sentences Auscultation: clear to auscultation bilaterally, no crackles, no rales, no rhonchi and no wheezes Cardio: Rate: regular rate Skin: General skin exam: normal color and no rashes or lesions noted Neuro: General: patient oriented x3, gait normal, moves all extremities and no meningeal signs Cognition (Neuro): normal cognition Speech: normal speech Gait exam (Neuro): Normal gait present Extrem: General: normal to inspection, full ROM, capillary refill normal and normal gait Psych: Appearance: grossly normal and well kempt Mental Status: mental status grossly normal Speech and movement: Normal speech and movement present and Clear speech present Affect: normal affect Attitude: cooperative Course Course Level of Care: Express Care Visit Vital Signs Vital signs: Vital Signs Temperature 99.0 F 01/31/25 18:21 Pulse Rate 93 01/31/25 18:21 Respiratory Rate 18 01/31/25 18:21 Blood Pressure 151/92 H 01/31/25 18:21 Pulse Oximetry 98 01/31/25 18:21 Oxygen Delivery Room Air 01/31/25 18:21 Temperature 99.0 F 01/31/25 18:21 Pulse Rate 93 01/31/25 18:21 Respiratory Rate 18 01/31/25 18:21 Blood Pressure 151/92 H 01/31/25 18:21 Pulse Oximetry 98 01/31/25 18:21 Oxygen Delivery Room Air 01/31/25 18:21 Reviewed MDM - URI/Sore Throat MDM Narrative Medical decision making narrative: Patient sitting in exam room. Patient is nontoxic, vitals stable. Patient presents for 1 day history of URI symptoms. Flu COVID and strep were negative. Postnasal drainage noted on exam otherwise no acute findings noted exam. work note given upon request Patient appropriate for outpatient treatment with close follow-up Discharge instructions reviewed with patient, as well as provided in writing per nursing staff. The instructions also include specific and strict return/GO TO THE ER as well as f/u information. All questions have been answered, and the patient deny any further questions with discharge and discharge plan. Some parts of this dictation were generated by voice recognition software and may contain typographical and/or grammatical inaccuracies. Differential Diagnosis Differential diagnosis: Likely upper respiratory infection, otitis media, sinusitis, viral infection, bronchitis, influenza and pharyngitis Lab Data Labs: Lab Results 01/31/25 01/31/25 Range/Units 18:28 18:30 POC Influenza A Ag Negative (Negative) POC Influenza B Ag Negative (Negative) POC SARS CoV-2 Ag Negative (Negative) POC Grp A Strep Screen Negative (Negative) reviewed Critical Care Time Critical Care Time Critical Care Time: No Discharge Plan Discharge Clinical Impression: PND (post-nasal drip) Upper respiratory infection Qualifiers: URI type: unspecified viral URI Qualified Code(s): J06.9 - Acute upper respiratory infection, unspecified Patient Disposition: Home Condition: Stable Instructions: Antibiotic Form, Upper Respiratory Infection (DC), Postnasal Drip (DC) Additional Instructions: Your rapid strep swab was negative today at [facility]. A throat culture will be sent to the laboratory for further testing. If the test is positive, you will receive a phone call within 48 hours and an appropriate antibiotic will be initiated at that time. Your rapid COVID test were negative Your rapid flu test was negative Your symptoms are likely due to a viral illness, which is not treated with antibiotics. Typically viral infections last 7-10 days, can linger for couple of weeks. It is very important to treat your symptoms. Drink plenty of water, Gatorade, Pedialyte, ice pops or Jell-O. -Alternate Tylenol and Motrin per package directions for fever or pain. You can alternate every 4 hours -Antihistamine medication such as Zyrtec/Claritin/Lizeth during the day can help improve symptoms. -doing daily nasal irrigations can help relieve pressure your sinuses. Things like a Neti pot -Use Flonase twice a day for 5 days then daily to help reduce the inflammation and dry up your sinuses. -You can also use Mucinex. Be sure to drink plenty of water with this medication at least 8 ounces with every dose and it is important to drink 8 to 10 glasses of water per day. Water is a natural decongestant -Eat and drink things that are easy to swallow, like tea or soup, or popsicles. -Oral rinses such as: Salt water gargles and/or may use topical anesthetic (eg. Chloraseptic spray) or lozenges to relieve dryness or throat pain). -Frequent hand washing or hand pipe fitter maintenance is one of the best ways to prevent spread of infection. -Using a vaporizer or humidifier at night will also help thin secretions and help with coughing up phlegm. -Follow up with primary care provider in 7-10 days if condition is not improving - For new or worsening symptoms go directly to the nearest ER Patient Language: Guamanian Prescriptions: No Action Nexplanon 68 mg Implant 1 implant SUBDERMAL ONCE Rx Instructions: as a single dose Follow-up/Referrals: PHYSICIAN,AUTO SERVICE STATION ATTENDANT [Primary Care Provider, Internal Medicine] Stand Alone Forms: Work/School Release IP Time of Disposition: 18:37
[2025-01-31 18:32] LABS: EDCOVIDSCREEN Negative (Negative); EDINFLUASCREEN Negative (Negative); EDINFLUBSCREEN Negative (Negative)
[2025-01-31 18:32] LABS: EDSTREPNEGPOS1 Negative (Negative)
== END 2025-01-31 18:42 | disposition home or self-care (01) ==
PROVIDERS: Emergency Provider Nurse Practitioner
DX: J06.9 Acute upper respiratory infection, unspecified (principal); Z20.822 Contact with and (suspected) exposure to COVID-19
CPT/HCPCS: 87081; 87426; 87804; 87880; 99213; G0463